=== PATIENT | female | born 2000 | race Caucasian/White ===

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

== ENCOUNTER 2018-01-25 18:45 | Emergency (ER) | payer MEDICAID ==
[2018-01-25 19:18] LABS: BILIRUBIN,URINE NEGATIVE (NEGATIVE); GLUCOSE, URINE (UA) NEGATIVE (NEGATIVE); KETONES,URINE (UA) NEGATIVE (NEGATIVE); LEUKOCYTE ESTERASE, URINE NEGATIVE (NEGATIVE); NITRITE,URINE NEGATIVE (NEGATIVE); OCCULT BLOOD,URINE NEGATIVE (NEGATIVE); PROTEIN,URINE NEGATIVE (NEGATIVE); UROBILINOGEN,URINE 0.2 (NORMAL) E.U./dL (NORMAL)
[2018-01-25 19:23] LABS: CLARITY,URINE CLEAR (CLEAR); HCG UR QUAL NEGATIVE
--- NOTE | 2018-01-25 20:03 | ED Physician Documentation ---
History of Present Illness - Stated complaint Stated Complaint: NEAR SYNCOPE/CP - Chief complaint Chief Complaint: Neuro - History obtained from History obtained from: Patient, Family (Shahida) - History of Present Illness Timing: How many days ago (This is a 17-year-old who in contrast to the nurse's notes is not on control pills. She has been off of them for about a year. She has 2 days of shortness of breath and pain with taking a deep breath with substernal anterior chest pressure and near syncopal episodes especially at work. The syncope is worse when she is upright. She notes no recent travel , pedal edema, or calf pain. No hemoptysis or cough.) Review of Systems Constitutional: denies: Fever, Chills Cardiac: reports: Chest pain / pressure. denies: Palpitations Respiratory: reports: Dyspnea. denies: Cough GI: denies: Abdominal Pain, Nausea, Vomiting PD PAST MEDICAL HISTORY - Past Medical History Past Medical History: No Psych: Anxiety - Past Surgical History Past Surgical History: No - Present Medications Home Medications: Ambulatory Orders Medication Instructions Recorded Confirmed Bacitracin Zinc Oint 1 applic TOP BID #1 tube 02/20/17 Control Pill 02/20/17 - Allergies Allergies/Adverse Reactions: Allergies Allergy/AdvReac Type Severity Reaction Status Date / Time pomegranate Allergy Edema Verified 01/25/18 19:10 - Social History Does the pt smoke?: No Smoking Status: Never smoker Does the pt drink ETOH?: No Does the pt have substance abuse?: No - Immunizations Immunizations are current?: No Immunizations: TDAP >10years/unknown - POLST Patient has POLST: No PD ED PE NORMAL - Vitals Vital signs reviewed: Yes - General General: Alert and oriented X 3, Other (Poor eye contact) - HEENT HEENT: PERRL, EOMI - Neck Neck: Supple, no meningeal sign, No bony TTP - Cardiac Cardiac: RRR, No murmur - Respiratory Respiratory: No respiratory distress, Other (She really does not take very deep breaths when I asked her to) - Abdomen Abdomen: Non tender - Extremities Extremities: No edema, No calf tenderness / cord - Neuro Neuro: Alert and oriented X 3, Normal speech Results - Vitals Vitals: Vital Signs - 24 hr 01/25/18 01/25/18 01/25/18 18:48 19:50 20:53 Temperature 37 C Heart Rate 87 81 85 Respiratory 16 18 16 Rate Blood Pressure 124/75 116/69 115/66 O2 Saturation 100 100 100 Oxygen O2 Source Room air - EKG (time done) 1904 Rate: Rate (enter#) (81) Rhythm: NSR [place]: Normal Intervals: Normal [place] QRS: Normal Ischemia: Normal ST segments Computer interpretation: Agree with computer - Labs Labs: Laboratory Tests 01/25/18 01/25/18 01/25/18 19:10 20:15 20:15 WBC 6.2 RBC 4.46 Hgb 12.8 Hct 39.7 MCV 88.9 MCH 28.8 MCHC 32.4 RDW 14.0 Plt Count 282 MPV 9.7 Neut # (Auto) 3.9 Lymph # (Auto) 1.8 [place] # (Auto) 0.4 Eos # (Auto) 0.1 Baso # (Auto) 0.0 Absolute Nucleated RBC 0.00 Nucleated RBC % 0.1 D-Dimer < 200.0 L Sodium Potassium Chloride Carbon Dioxide Anion Gap BUN Creatinine Estimated GFR (MDRD) Glucose Calcium Total Bilirubin AST ALT Alkaline Phosphatase Troponin I Total Protein Albumin Globulin Albumin/Globulin Ratio Lipase Urine Color COLORLESS Urine Clarity CLEAR Urine pH 6.0 Ur Specific [place] <=1.005 Urine Protein NEGATIVE Urine Glucose (UA) NEGATIVE Urine Ketones NEGATIVE Urine Occult Blood NEGATIVE Urine Nitrite NEGATIVE Urine Bilirubin NEGATIVE Urine Urobilinogen 0.2 (NORMAL) Ur Leukocyte Esterase NEGATIVE Ur Microscopic Review NOT INDICATED Urine Culture Comments NOT INDICATED Urine HCG, Qual NEGATIVE 01/25/18 01/25/18 20:15 20:15 WBC RBC Hgb Hct MCV MCH MCHC RDW Plt Count MPV Neut # (Auto) Lymph # (Auto) [place] # (Auto) Eos # (Auto) Baso # (Auto) Absolute Nucleated RBC Nucleated RBC % D-Dimer Sodium 138 Potassium 3.4 L Chloride 105 Carbon Dioxide 27 Anion Gap 6.0 BUN 7 Creatinine 0.6 Estimated GFR (MDRD) 129 Glucose 81 Calcium 9.4 Total Bilirubin 1.0 AST 24 ALT 23 Alkaline Phosphatase 44 Troponin I < 0.04 Total Protein 7.3 Albumin 4.0 Globulin 3.3 Albumin/Globulin Ratio 1.2 Lipase 27 Urine Color Urine Clarity Urine pH Ur Specific [place] Urine Protein Urine Glucose (UA) Urine Ketones Urine Occult Blood Urine Nitrite Urine Bilirubin Urine Urobilinogen Ur Leukocyte Esterase Ur Microscopic Review Urine Culture Comments Urine HCG, Qual - Rads (name of study) 2v chest Radiology: EMP read contemporaneously (normal) PD MEDICAL DECISION MAKING - ED course ED course: 17-year-old presyncopal episodes, chest pain and trouble breathing. She is not currently on control pills but the history is concerning for DVT but a d- dimer was done and negative and the remainder of her diagnostics were negative as well. - Sepsis Event Vital Signs: Vital Signs - 24 hr 01/25/18 01/25/18 01/25/18 18:48 19:50 20:53 Temperature 37 C Heart Rate 87 81 85 Respiratory 16 18 16 Rate Blood Pressure 124/75 116/69 115/66 O2 Saturation 100 100 100 Oxygen O2 Source Room air Departure - Departure Disposition: 01 Home, Self Care Clinical Impression: Dizziness Chest pain Qualifiers: Chest pain type: pleurodynia Qualified Code(s): R07.81 - Pleurodynia Condition: Good Record reviewed to determine appropriate education?: Yes Instructions: ED Chest Pain NonCardiac Comments: Ibuprofen as needed for pain, [place] return if worse or if new symptoms develop.
[2018-01-25 20:25] LABS: BASOPHILS % (AUTO) 0.4 %; EOSINOPHILS # (AUTO) 0.1 10^3/uL (0.0-0.7); EOSINOPHILS % (AUTO) 1.2 %; HGB - HEMOGLOBIN 12.8 g/dL (12.0-16.0); LYMPHOCYTES # (AUTO) 1.8 10^3/uL (1.5-3.5); LYMPHOCYTES % (AUTO) 29.4 %; MEAN CORPUSCULAR HEMOGLOBIN 28.8 pg (27.0-31.0); MEAN CORPUSCULAR HGB CONC 32.4 g/dL (32.0-36.0); MEAN CORPUSCULAR VOLUME 88.9 fL (81.0-99.0); MEAN PLATELET VOLUME 9.7 fL (7.9-10.8); MONOCYTES # (AUTO) 0.4 10^3/uL (0.0-1.0); MONOCYTES % (AUTO) 6.6 %; NEUTROPHILS # (AUTO) 3.9 10^3/uL (1.5-6.6); NEUTROPHILS % (AUTO) 62.4 %; PLT - PLATELET COUNT 282 10^3/uL (130-450); RED BLOOD COUNT 4.46 10^6/uL (4.20-5.40); WHITE BLOOD COUNT 6.2 x10^3/uL (4.8-10.8)
[2018-01-25 20:42] LABS: ALBUMIN/GLOBULIN RATIO 1.2 (1.0-2.2); CALCIUM 9.4 mg/dL (8.5-10.3); CREATININE 0.6 mg/dL (0.4-1.0); TOTAL PROTEIN 7.3 g/dL (6.7-8.2)
--- NOTE | 2018-01-25 20:56 | XRAY Report ---
Procedure Date: 01/25/2018 Accession Number: [id number] / [id number] Procedure: XR - Chest 2 View X-Ray CPT Code: 95578 FULL RESULT: EXAM: CHEST RADIOGRAPHY EXAM DATE: 01/25/2018 08:28 PM. CLINICAL HISTORY: Dyspnea. COMPARISON: None. TECHNIQUE: 2 views. FINDINGS: Lungs/Pleura: No focal opacities evident. No pleural effusion. No pneumothorax. Normal volumes. Mediastinum: Heart and mediastinal contours are normal. Other: ECG leads overlie the chest. IMPRESSION: No acute cardiopulmonary abnormality. [facility]
[2018-01-25 21:30] VITALS: BP 107/71
== END 2018-01-25 21:22 | disposition home or self-care (01) ==
LOC: ED 18:45
DX: R42 Dizziness and giddiness (principal); R07.81 Pleurodynia
CPT/HCPCS: 36415; 71046; 80053; 81001; 81003; 81025; 83690; 84484; 85025; 85379; 87086; 93005; 99283; 99284

== ENCOUNTER 2018-03-31 00:09 | Emergency (ER) | payer OTHER, MEDICAID ==
[2018-03-31 00:54] LABS: BILIRUBIN,URINE NEGATIVE (NEGATIVE); GLUCOSE, URINE (UA) NEGATIVE (NEGATIVE); KETONES,URINE (UA) NEGATIVE (NEGATIVE); LEUKOCYTE ESTERASE, URINE NEGATIVE (NEGATIVE); NITRITE,URINE NEGATIVE (NEGATIVE); OCCULT BLOOD,URINE NEGATIVE (NEGATIVE); PROTEIN,URINE NEGATIVE (NEGATIVE); UROBILINOGEN,URINE 0.2 (NORMAL) E.U./dL (NORMAL)
[2018-03-31 00:58] LABS: CLARITY,URINE CLEAR (CLEAR)
--- NOTE | 2018-03-31 01:12 | ED Physician Documentation ---
History of Present Illness - Stated complaint Stated Complaint: JAW LOCKING UP,SHAKEY - Chief complaint Chief Complaint: Abd Pain - History obtained from History obtained from: Patient, Family - History of Present Illness Timing: Today Pain level max: 5 Pain level now: 4 Improved by: nothing Worsened by: urination - Additonal information Additional information: Patient is a 18-year-old female who states that she just found out she is . Took a positive home test. LMP was last month. She states that she started feeling anxious tonight, shaky all over and her jaw felt tight. Has a history of anxiety and panic attacks. Is not currently on medications. Review of Systems Ten Systems: 10 systems reviewed and negative Constitutional: denies: Fever, Chills Nose: denies: Rhinorrhea / runny nose, Congestion Respiratory: denies: Cough GI: denies: Vomiting, Diarrhea : reports: Discharge, LMP (1 month ago). denies: Vaginal bleeding Skin: denies: Rash Musculoskeletal: denies: Neck pain, Back pain Neurologic: denies: Focal weakness, Numbness PD PAST MEDICAL HISTORY - Past Medical History Past Medical History: Yes Cardiovascular: None Respiratory: None Neuro: None GI: None COMPETITIVE ATHLETE: None : None HEENT: None Psych: Anxiety Musculoskeletal: None Derm: None - Past Surgical History Past Surgical History: No - Present Medications Home Medications: Ambulatory Orders Medication Instructions Recorded Confirmed Bacitracin Zinc Oint 1 applic TOP BID #1 tube 02/20/17 Control Pill 02/20/17 Metronidazole [Flagyl] 500 mg PO BID #14 tablet 03/31/18 - Allergies Allergies/Adverse Reactions: Allergies Allergy/AdvReac Type Severity Reaction Status Date / Time pomegranate Allergy Edema Verified 03/31/18 00:30 - Social History Does the pt smoke?: No Smoking Status: Never smoker Does the pt drink ETOH?: No Does the pt have substance abuse?: No - Immunizations Immunizations are current?: No Immunizations: TDAP >10years/unknown - POLST Patient has POLST: No PD ED PE NORMAL - Vitals Vital signs reviewed: Yes - General General: Alert and oriented X 3, No acute distress, Well developed/nourished - HEENT HEENT: Ears normal, Moist mucous membranes, Pharynx benign, Other (no trismus) - Neck Neck: Supple, no meningeal sign, Other (FROM without pain) - Cardiac Cardiac: RRR - Respiratory Respiratory: No respiratory distress, Clear bilaterally - Abdomen Abdomen: Soft, Non tender, Non distended - Female Female : 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 Green discharge covering the jasso of the vagina. Vaginal irritation present. Cervix appears irritated and inflamed as well.) - Derm Derm: Warm and dry - Neuro Neuro: Alert and oriented X 3 - Psych Psych: Normal mood, Normal affect Results - Vitals Vitals: Vital Signs - 24 hr 03/31/18 03/31/18 00:28 03:38 Temperature 37.1 C Heart Rate 113 H 98 Respiratory 16 16 Rate Blood Pressure 115/69 119/63 O2 Saturation 99 99 Oxygen O2 Source Room air - Labs Labs: Microbiology 03/31/18 02:50 Wet Prep - Final Vaginal Laboratory Tests 03/31/18 03/31/18 00:30 02:44 Urine Color COLORLESS Urine Clarity CLEAR Urine pH 7.0 Ur Specific [place] <=1.005 <1.005 Urine Protein NEGATIVE Urine Glucose (UA) NEGATIVE Urine Ketones NEGATIVE Urine Occult Blood NEGATIVE Urine Nitrite NEGATIVE Urine Bilirubin NEGATIVE Urine Urobilinogen 0.2 (NORMAL) Ur Leukocyte Esterase NEGATIVE Ur Microscopic Review NOT INDICATED Urine Culture Comments NOT INDICATED Urine HCG, Qual POSITIVE PD MEDICAL DECISION MAKING - ED course Complexity details: reviewed results, re-evaluated patient, considered differential, d/w patient, d/w family ED course: Patient is a 18-year-old female who presents to the emergency department with a few issues, the first appears to be anxiety. As she is currently , Benadryl was given and this helped her anxiety tremendously. Able to open and close her mouth without difficulty as well as turn her head and neck. No longer feels anxious. She believes that she may have had a UTI because of the dysuria, but urinalysis is negative. Pelvic examination was performed and will treat for possible bacterial vaginitis. Pelvic exam is also concerning for gonorrhea, therefore treated with Rocephin and azithromycin. Urine was sent for gonorrhea and Chlamydia testing. Patient is reportedly approximately 2-3 weeks . No pelvic pain. No vaginal bleeding. Patient counseled regarding signs and symptoms for which I believe and urgent re-evaluation would be necessary. Patient with good understanding of and agreement to plan and is comfortable going home at this time This document was made in part using voice recognition software. While efforts are made to proofread this document, sound alike and grammatical errors may occur. - Sepsis Event Vital Signs: Vital Signs - 24 hr 03/31/18 03/31/18 00:28 03:38 Temperature 37.1 C Heart Rate 113 H 98 Respiratory 16 16 Rate Blood Pressure 115/69 119/63 O2 Saturation 99 99 Oxygen O2 Source Room air Departure - Departure Disposition: 01 Home, Self Care Clinical Impression: Bacterial vaginitis, Anxiety Qualifiers: Weeks of gestation: less than 8 weeks Qualified Code(s): Z3A.01 - Less than 8 weeks gestation of Condition: Good Instructions: ED Panic Attack, ED Vaginosis Bacterial Follow-Up: your,doctor in 1week [Other] Prescriptions: Metronidazole [Flagyl] 500 mg PO BID #14 tablet Comments: Return if you worsen. Take all medications as prescribed. Follow up with your doctor for further care. Forms: Activity restrictions Discharge Date/Time: 03/31/18 04:01
[2018-03-31] MEDS ORDERED: diphenhydrAMINE 25 MG CAPSULE PO STA (01:41)
[2018-03-31 02:54] LABS: HCG UR QUAL POSITIVE
[2018-03-31] MEDS ORDERED: cefTRIAXone 1 GM VIAL IM STA (03:21)
[2018-03-31] MEDS ORDERED: LIDOCAINE 1% 2 ML VIAL SUBQ ONE (03:21)
[2018-03-31] MEDS ORDERED: metroNIDAZOLE 250 MG TABLET PO STA (03:22)
[2018-03-31] MEDS ORDERED: AZITHROMYCIN 250 MG TABLET PO STA (03:23)
[2018-03-31 03:38] VITALS: BP 119/63
== END 2018-03-31 04:01 | disposition home or self-care (01) ==
LOC: ED 00:09
DX: O23.591 Infection of other part of genital tract in pregnancy, first trimester (principal); B96.89 Other specified bacterial agents as the cause of diseases classified elsewhere; O99.341 Other mental disorders complicating pregnancy, first trimester; Z3A.01 Less than 8 weeks gestation of pregnancy
CPT/HCPCS: 81003; 81025; 87210; 87491; 87591; 96372; 99283; A9270; 81001; 87086; 87220

== ENCOUNTER 2018-04-29 13:31 | Emergency (ER) | payer OTHER, MEDICAID ==
[2018-04-29 13:59] LABS: BILIRUBIN,URINE NEGATIVE (NEGATIVE); GLUCOSE, URINE (UA) NEGATIVE (NEGATIVE); KETONES,URINE (UA) NEGATIVE (NEGATIVE); LEUKOCYTE ESTERASE, URINE TRACE (NEGATIVE); NITRITE,URINE NEGATIVE (NEGATIVE); OCCULT BLOOD,URINE NEGATIVE (NEGATIVE); PH,URINE 5.5 PH (5.0-7.5); PROTEIN,URINE NEGATIVE (NEGATIVE); UROBILINOGEN,URINE 0.2 (NORMAL) E.U./dL (NORMAL)
[2018-04-29 14:08] LABS: HCG UR QUAL POSITIVE
[2018-04-29 14:09] LABS: CLARITY,URINE CLEAR (CLEAR)
--- NOTE | 2018-04-29 14:12 | ED Physician Documentation ---
PD HPI ABD PAIN - Stated complaint Stated Complaint: 10WKS PREG/CRAMPING/SPOTTING - Chief complaint Chief Complaint: Abd Pain - History obtained from History obtained from: Patient - History of Present Illness Timing - onset: Yesterday (G1 at 10 weeks gestation with unknown blood type with pelvic cramping and slight bleeding since yesterday, just spotting.) Review of Systems Constitutional: reports: Reviewed and negative GI: denies: Abdominal Pain, Nausea, Vomiting, Diarrhea : denies: Dysuria, Frequency, Hesitancy PD PAST MEDICAL HISTORY - Past Medical History Cardiovascular: None Respiratory: None Neuro: None GI: None STEAM HAND: None : None HEENT: None Psych: Anxiety Musculoskeletal: None Derm: None - Past Surgical History Past Surgical History: No - Present Medications Home Medications: Ambulatory Orders Medication Instructions Recorded Confirmed Nitrofurantoin Monohyd/M-Cryst 100 mg PO BID #10 capsule 04/29/18 [Macrobid 100 mg Capsule] [id number]/Dha/Fish Oil 04/29/18 [ Gummies] - Allergies Allergies/Adverse Reactions: Allergies Allergy/AdvReac Type Severity Reaction Status Date / Time metronidazole [From Flagyl] Allergy Respiratory Verified 04/29/18 13:45 pomegranate Allergy Edema Verified 04/29/18 13:45 - Social History Does the pt smoke?: No Smoking Status: Never smoker Does the pt drink ETOH?: No Does the pt have substance abuse?: No - Immunizations Immunizations are current?: No Immunizations: TDAP >10years/unknown - POLST Patient has POLST: No PD ED PE NORMAL - Vitals Vital signs reviewed: Yes - General General: Alert and oriented X 3, No acute distress - Abdomen Abdomen: Normal bowel sounds, Soft, Non tender - Female Female : Other (Bedside transabdominal ultrasound shows single live intrauterine with heart rate of 170 and positive motion) - Neuro Neuro: Alert and oriented X 3, Normal speech Results - Vitals Vitals: Vital Signs - 24 hr 04/29/18 13:41 Temperature 37.3 C Heart Rate 108 H Respiratory 18 Rate Blood Pressure 130/83 H O2 Saturation 100 Oxygen O2 Source Room air - Labs Labs: Laboratory Tests 04/29/18 04/29/18 13:50 14:27 Urine Color LIGHT YELLOW Urine Clarity CLEAR Urine pH 5.5 Ur Specific [place] <=1.005 Urine Protein NEGATIVE Urine Glucose (UA) NEGATIVE Urine Ketones NEGATIVE Urine Occult Blood NEGATIVE Urine Nitrite NEGATIVE Urine Bilirubin NEGATIVE Urine Urobilinogen 0.2 (NORMAL) Ur Leukocyte Esterase TRACE H Urine RBC None Seen Urine WBC 4-5 Ur Squamous Epith Cells FEW Squamous Urine Bacteria Rare Ur Microscopic Review INDICATED Urine Culture Comments INDICATED Urine HCG, Qual POSITIVE Blood Type A POSITIVE Departure - Departure Disposition: 01 Home, Self Care Clinical Impression: Cystitis Qualifiers: Weeks of gestation: 10 weeks Qualified Code(s): Z3A.10 - 10 weeks gestation of Condition: Good Record reviewed to determine appropriate education?: Yes Instructions: ED Preg Established Normal Sxs, ED UTI Cystitis Female Prescriptions: Nitrofurantoin Monohyd/M-Cryst [Macrobid 100 mg Capsule] 100 mg PO BID #10 capsule Comments: Return for any new or worsening symptoms. Follow-up with your OB next week. We will culture your urine, the results should be done in 48-72 hours. If an antibiotic change is necessary we will call you. Return if worse in the meantime, especially if you develop increasing flank pain, fevers, or cannot keep down the medication. Your blood pressure was elevated today on check into the emergency department. This does not mean that you have hypertension, it is a common phenomenon to come to the emergency department and have elevated blood pressure. I recommend that you see your primary care physician within the week to have it rechecked when you are feeling better.
[2018-04-29 14:17] LABS: RBC,URINE None Seen /HPF (0-5); SQUAMOUS EPITHELIAL CELL,UR FEW Squamous (<= Few)
[2018-04-29 14:18] LABS: BACTERIA,URINE Rare /HPF (None Seen)
[2018-04-29] MEDS ORDERED: NITROFURANTOIN MACRO 100 MG CAPSULE PO STA (15:20)
[2018-04-29 15:28] VITALS: BP 102/73
== END 2018-04-29 15:31 | disposition home or self-care (01) ==
LOC: ED 13:31
DX: O23.11 Infections of bladder in pregnancy, first trimester (principal); Z3A.10 10 weeks gestation of pregnancy; O26.891 Other specified pregnancy related conditions, first trimester; R03.0 Elevated blood-pressure reading, without diagnosis of hypertension
CPT/HCPCS: 36415; 81001; 81025; 86900; 86901; 87086; 99283; A9270; 81003